=== PATIENT | male | born 1950 | race Caucasian/White ===

== ENCOUNTER → 2017-07-10 | Outpatient (CLI) | payer MEDICARE ==
[~2017-07-10] MED LIST: AMA100 PO; AMLO-122 PO; ASPI-1471 PO; ATOR20TA65 PO; CARB-124 PO; CHOL100052 PO; ESCI10TA8 PO; ESCI20TA8 PO; GABA-503 PO; GABA-549 PO; GLIM4TAB50 PO; HYDR-4225 PO; LINA1TAB5 PO; METF-420 PO; METF500T4 PO; OXYGENHOME INH; PRI250 PO; PRIM50TA PO; PROP20TA56 PO; SINCR502 PO; SITA100T PO; TEMA-55 PO; TERA10CA44 PO; TERA5CAP59 PO; TOPI25CA13 PO; TRAZ-156 PO
== END ==
LOC: LAB 08:48
PROVIDERS: ATTEND Nurse Practitioner Pediatrics
DX: D50.9 Iron deficiency anemia, unspecified (principal)
CPT/HCPCS: 36415; 82728; 83540; 83550; 85027

== ENCOUNTER → 2017-08-06 | Outpatient (CLI) | payer MEDICARE ==
[2017-08-06 08:39] LABS: PLATELET COUNT, AUTOMATED 212 K/uL (150-450)
[2017-08-06 08:45] LABS: LDL CHOLESTEROL 101 mg/dl
== END ==
LOC: LAB 08:18
PROVIDERS: ATTEND Internal Medicine
DX: I10 Essential (primary) hypertension (principal); G47.33 Obstructive sleep apnea (adult) (pediatric); G25.0 Essential tremor; E78.5 Hyperlipidemia, unspecified; E11.9 Type 2 diabetes mellitus without complications; Z89.111 Acquired absence of right hand
CPT/HCPCS: 36415; 82040; 82043; 82247; 82310; 82374; 82435; 82465; 82565; 82947; 83036; 83718; 84075; 84132; 84155; 84295; 84443; 84450; 84460; 84478; 84520; 85025

== ENCOUNTER → 2017-11-24 | Outpatient (CLI) | payer MEDICARE ==
[~2017-11-24] MED LIST changes: +BUSP15TA69 PO; +CARB-71 PO; +CYAN500T54 PO; +INSU100I30 SQ; +MELA3TAB31 PO; -METF-420 PO; +METF-421 PO; +PEN1DIS.48; +PRAZ5CAP16 PO; +VITA-200 PO
[2017-11-24 09:27] LABS: LDL CHOLESTEROL 152 mg/dl
== END ==
LOC: LAB 08:44
PROVIDERS: ATTEND Internal Medicine
DX: E78.5 Hyperlipidemia, unspecified (principal); E11.9 Type 2 diabetes mellitus without complications; I10 Essential (primary) hypertension
CPT/HCPCS: 36415; 82040; 82247; 82310; 82374; 82435; 82465; 82565; 82947; 83036; 83718; 84075; 84132; 84155; 84295; 84450; 84460; 84478; 84520

== ENCOUNTER → 2017-12-09 | Outpatient (CLI) | payer MEDICARE ==
[~2017-12-09] MED LIST changes: +ATOR40TA69 PO
== END ==
LOC: RESP 01:47
PROVIDERS: ATTEND Internal Medicine
DX: R94.01 Abnormal electroencephalogram [EEG] (principal)
CPT/HCPCS: 95819

== ENCOUNTER → 2018-07-21 | Outpatient (CLI) | payer MEDICARE ==
[~2018-07-21] MED LIST changes: +BLOO-1037 ASDIRECTED; +BLOO-960 MC; +FLU180SY11 IM; +LANC-165 ASDIRECTED; -METF-421 PO; +METF-452 PO; +PNEU0.5D3 IM; -TRAZ-156 PO; +TRAZ50TA34 PO
[2018-07-21 09:32] LABS: PLATELET COUNT, AUTOMATED 182 K/uL (150-450)
[2018-07-21 10:11] LABS: LDL CHOLESTEROL 63 mg/dl
== END ==
LOC: LAB 09:16
PROVIDERS: ATTEND Internal Medicine
DX: Z11.59 Encounter for screening for other viral diseases (principal); G20 Parkinson's disease; G25.0 Essential tremor; E11.9 Type 2 diabetes mellitus without complications; I10 Essential (primary) hypertension
CPT/HCPCS: 83036; 84443; 85025; G0472; 82040; 82247; 82310; 82374; 82435; 82465; 82565; 82947; 83718; 84075; 84132; 84155; 84295; 84450; 84460; 84478; 84520; 86803

== ENCOUNTER → 2018-11-11 | Outpatient (CLI) | payer MEDICARE ==
[~2018-11-11] MED LIST changes: -GABA-503 PO; +GABA-533 PO; +TAMS0.4C25 PO
[2018-11-11 08:59] LABS: PLATELET COUNT, AUTOMATED 197 K/uL (150-450)
[2018-11-11 09:24] LABS: LDL CHOLESTEROL 62 mg/dl
== END ==
LOC: LAB 08:23
PROVIDERS: ATTEND Internal Medicine
DX: E11.9 Type 2 diabetes mellitus without complications (principal); G20 Parkinson's disease; I10 Essential (primary) hypertension; F41.9 Anxiety disorder, unspecified; N40.0 Benign prostatic hyperplasia without lower urinary tract symptoms
CPT/HCPCS: 36415; 81001; 82040; 82247; 82310; 82374; 82435; 82465; 82565; 82947; 83036; 83718; 84075; 84132; 84153; 84155; 84295; 84443; 84450; 84460; 84478; 84520; 85025

== ENCOUNTER 2019-01-07 08:45 | Outpatient (RCR) | payer MEDICARE ==
[~2019-01-07] VITALS: Ht 172.7 cm; Wt 103.4 kg
[~2019-01-07 08:45] MED LIST changes: +FLAS1EAC2 TD; +FLAS1KIT2; -TRAZ50TA34 PO; +TRAZ50TA52 PO
--- NOTE | 2019-01-07 11:25 | Medical Nutrition Therapy ---
Nutrition Anthropometrics Height (Inches): 68 Weight (Pounds): 228 BMI: 34.7 Hx Weight Gain: Yes (Has slowy gained) Gaston Nutrition Score: Gaston Nutrition Risk Score: Dietary Referral Nutrition Risk Factors: Nutrition Risk Comment: Nutrition/Food History Good Breakfast: Pancake (at home) or Pancake, Eggs, Sausage (Restaurant) Lunch: Pasta, salad, dessert Dinner: Ham, Mashed Potatoes, Peas Snacks: Popcorn, Fruit Nutritional Education Nutrition Education Topic: Diabetic Nutrition Learning Barriers: Emotional Learning Readiness: Eager Teaching Methods: Discussion, Handout Response to Teaching: Verbalize understanding Teaching Recipient: Patient Nutrition Counselin01/07/19-Purpose of visit was to review diabetic diet principles. Discussed importance of managing blood sugars and target blood glucose. Pt stated that he has a sweet tooth, and gets cravings throughout the day. Also stated that he likes breads, pasta, deep fried foods, potatoes/ukrainian fries. He typically eats at the soup kitchen for lunch and frequently eats sweets while there. Developed a meal plan aiming for 45-60g CHO per meal with one 15g CHO snack and 1 snack (without CHO). We reviewed which foods contain CHO and emphasized consuming non-starchy vegetables and free foods. Goals included not eating sweets and only having one entree serving at the soup kitchen. Another goal was to limit dessert to once per week. Also recommended he check his BG two hours after dinner. Follow up with pt to assess patient tolerance to meal plan and goal progression. MELISSA Nutrition Monitoring & Hang RD Patient Assessment Time: [address] Assessment Type: RD Education Nutritional Comment: Provided 60 minutes of follow up diabetes education focusing on nutrition.DENISE STEPHEN Jan 07, 2019 11:25
== END 2019-01-12 12:51 | disposition home or self-care (01) ==
LOC: DIET 08:45
PROVIDERS: ATTEND Internal Medicine
DX: E11.9 Type 2 diabetes mellitus without complications (principal); I10 Essential (primary) hypertension; F41.9 Anxiety disorder, unspecified
CPT/HCPCS: G0108 ×2

== ENCOUNTER → 2019-02-09 | Outpatient (CLI) | payer MEDICARE | LOC: LAB 08:58 | PROVIDERS: ATTEND Internal Medicine | DX: E78.5 Hyperlipidemia, unspecified (principal); E11.9 Type 2 diabetes mellitus without complications; I10 Essential (primary) hypertension | CPT/HCPCS: 36415; 82040; 82247; 82310; 82374; 82435; 82565; 82947; 83036; 84075; 84132; 84155; 84295; 84450; 84460; 84520 ==